=== PATIENT | male | born 1975 | race Caucasian/White ===

== ENCOUNTER 2018-02-03 09:09 | Outpatient (CLI) | payer OTHER ==
[~2018-02-03 09:09] MED LIST: GADOPENTETATE DIMEGLUMINE 5 ML VIAL IVP ONE; IOTHALAMATE MEGLUMINE 50 ML VIAL ONE
[2018-02-03] MEDS ORDERED: GADOPENTETATE DIMEGLUMINE 5 ML VIAL IVP ONE (10:31)
[2018-02-03] MEDS ORDERED: BUFFERED LIDOCAINE 10 ML SYRINGE IU ONE (10:31)
[2018-02-03] MEDS ORDERED: IOTHALAMATE MEGLUMINE 50 ML VIAL IVP ONE (10:31)
--- NOTE | 2018-02-03 13:53 | MRI Report ---
Reason: PAIN IN UNSPECIFIED SHOULDER Procedure Date: 02/03/2018 Accession Number: [id number] / [id number] Procedure: MRI - Arthrogram Shoulder RT CPT Code: FULL RESULT: EXAM: RIGHT SHOULDER MRI ARTHROGRAM WITH CONTRAST EXAM DATE: 02/03/2018 11:13 AM. CLINICAL HISTORY: Right shoulder pain. History of anterior shoulder dislocation. COMPARISON: None. TECHNIQUE: Multiplanar, multisequence T1-weighted and fluid-sensitive sequences of the shoulder after an arthrographic injection of dilute gadolinium, dictated under a separate exam. Other: None. FINDINGS: Acromioclavicular Region: The acromion is type II. The acromioclavicular joint is unremarkable. The coracoacromial and coracoclavicular ligaments are intact. There is no contrast or fluid in the subacromial/subdeltoid bursa. Glenohumeral Region: No subluxation. No loose bodies. The articular cartilage is unremarkable. The glenohumeral ligaments and joint capsule are unremarkable. Bone Marrow: There is a chronic Hill-Sachs impaction deformity of the posterior superior humeral head measuring 2.2 cm in coronal dimension and 3.1 cm in sagittal dimension on the axial image. There is also an impaction deformity of the anterior inferior glenoid with irregularity of the inferior glenoid rim, also chronic. The glenoid track measures 3 cm with 3 mm glenoid bone loss anteriorly. Labrum: There is a chronic-appearing bony Bankart tear of the anterior inferior labrum with displacement of the bony Bankart fragment anteriorly and inferiorly into the axillary pouch. The posterior labrum is intact. Biceps Tendon: The long head of the biceps tendon and biceps emma are intact. Musculature/Rotator Cuff: Intrasubstance tear of the supraspinatus tendon measuring 5 x 4 mm at the footprint. The subscapularis, infraspinatus, and teres minor tendons are intact. No edema or fatty atrophy. Other: The subcutaneous tissues are unremarkable. IMPRESSION: 1. Sequelae of chronic anterior shoulder dislocation, with the Hill-Sachs index greater than the glenoid track, suspicious for an off track lesion at risk of engagement. 2. Bony Bankart tear of the anterior inferior labrum is displaced from the glenoid and likely adherent to the joint capsule at the axillary pouch. 3. Small intrasubstance tear of the supraspinatus tendon at the footprint measuring 5 x 4 mm. Otherwise intact rotator cuff tendons. No surfacing rotator cuff tendon tear. [facility] MUSCULOSKELET[facility]IOLOGY SECTION
--- NOTE | 2018-02-03 16:08 | XRAY Report ---
Reason: PAIN IN UNSPECIFIED SHOULDER Procedure Date: 02/03/2018 Accession Number: [id number] / [id number] Procedure: FL - Arthrogram Needle Placement CPT Code: FULL RESULT: EXAM: RIGHT SHOULDER ARTHROGRAPHIC INJECTION WITH FLUOROSCOPIC GUIDANCE EXAM DATE: 02/03/2018 10:22 AM. CLINICAL HISTORY: Pain in unspecified shoulder. COMPARISON: None. TECHNIQUE: The risks, benefits, and alternatives of the procedure were discussed with the patient. All questions were answered. Written and verbal consent were obtained. The glenohumeral joint was marked under fluoroscopy and prepped and draped in a sterile manner. Local anesthesia was performed with 1% lidocaine. A 22-gauge needle was then inserted into the glenohumeral joint. 10 mL of a solution containing 25% 1% lidocaine, 25% iodinated contrast, and a 1:200 dilution of gadolinium contrast in sterile saline was then injected. The needle was removed without immediate complication. Other: None. Fluoroscopy Time: 0.1 minutes. Number of Images: 3. FINDINGS: Bones and joints: Hill-Sachs deformity is identified. No subluxation. Injection: Fluoroscopic images demonstrate needle placement and contrast in the glenohumeral joint. No contrast extravasation outside of the glenohumeral joint. IMPRESSION: Successful fluoroscopically guided arthrographic injection of the shoulder. [facility]
== END 2018-02-03 09:10 | disposition home or self-care (01) ==
LOC: DI 09:09
PROVIDERS: ATTEND Orthopaedic Surgery
DX: M21.821 Other specified acquired deformities of right upper arm (principal); S43.491A Other sprain of right shoulder joint, initial encounter; M75.101 Unspecified rotator cuff tear or rupture of right shoulder, not specified as traumatic
CPT/HCPCS: 23350; 73222; 77002; Q9961

== ENCOUNTER 2020-02-01 09:01 | Outpatient (CLI) | payer OTHER ==
[2020-02-01 09:52] VITALS: BP 124/84
--- NOTE | 2020-02-01 09:52 | SLEEP CARE CONSULTATION ---
Information from patient questionnaire entered by Regine Galindo. I have reviewed and concur with the information entered by Regine Galindo. This document represents the service I personally performed and the decisions made by me, Geeta Kendrick ARNP. History of Present Illness Service Date and Time: 02/01/2020 09 Reason for Visit: New patient Chief Complaint: reports: Insomnia, Unrefreshed sleep, Excessive daytime sleepiness, Frequent awakenings at night. denies: Snoring, Observed pauses in breathing, Fatigue Date of Onset: 10-15 years Usual bedtime: 9pm weekdays, 10pm weekends Time it takes to fall asleep: 5 min Snores at night: No Observed to quit breathing while asleep: No Sleeps alone due to snoring: No Number of times waking at night: 5-10 Reasons for waking at night: reports: Gasping for air (with sleep paralysis in a dream), Bathroom, Other (mostley just wake up hourly; some mind racing) Toss, Turn, or Twitch while sleeping: Yes Recalls having dreams: Yes Usually gets out of bed at: 4am tete on weekdays, 6am on weekends Feels refreshed in the morning: No Morning headache: No Sleepy or fatigued during the day: Yes Ever fallen asleep while driving: Yes Takes day naps: No Dreams during day naps: Yes (sometimes) Prior sleep studies: No Additional HPI information: I had the pleasure of seeing FRANCISCO AGUERO today regarding the possibility of him having a sleep disorder. His current complaints are insomnia, unrefreshed sleep and frequent night awakenings. He has a history of issues with not getting enough sleep. He states some days are better than others. 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 He states in the last couple of years it seems to be worsening because he is having dreams of having sleep paralysis with his dreaming. He wakes up gasping sometimes when having these sleep paralysis dreams. His parents and grandparents all are snorers but he does not know if any have been diagnosed with sleep apnea. - Parasomnia Symptoms Ever been unable to move upon waking from sleep: Yes (35 years) Walks in sleep: Yes (as a child) Talks in sleep: Yes (once in a while if exhausted) Ever acted out dreams in sleep: Yes (not often, 1-2 times) Ever felt weak in the knees when startled or emotional: No Bothered by creepy, crawly, restless sensations in legs: Yes (sometimes; couple times a month) Problems with memory or concentration: Yes Subjective Initial [place] Sleepiness Scale score: 18 (in 2019) Past Medical History Past Medical History: reports: Gout, Anxiety (a little bit 1-2 times a month), Attention deficit, Other (ADHD, Kidney issue-abnormal and increased protein in urine (proteinuria) since 20 yrs old). denies: Hypertension, Congestive Heart Failure, Diabetes, Coronary Heart Disease, Arrythmia, Hypothyroidism, Anemia, Impotence, Depression, Mood disorder, GERD Social History The patient's occupation is a AM. Patient is and lives in [place]. Have you smoked in the past 12 months: Yes Cigarettes per day (20/pack): 10 Years of smokin Smoking Pack Years: 4.5 Alcohol use: Yes Alcohol amount and frequency: 2-3 drinks daily Caffeine use: Yes Caffeine amount and frequency: 2-3 cups in the morning Family History Family history of sleep disordered breathing: Yes (mother, father, both maternal and paternal grandparents) Family Hx Sleep Apnea: Mother: Snoring, Father: Snoring, Grandparent: Snoring Allergies and Home Medications Drug allergies reviewed: Yes (codiene) Home medication list reviewed: Yes (no medications) Review of Systems Weight loss over past 5 years: 40 Cardiovascular: denies: high blood pressure, palpitations, chest pain, irregular heart rate or pulse Respiratory: denies: shortness of breath, chronic cough Gastrointestinal: denies: heartburn, difficulty swallowing Urinary: denies: impotence Neurological: denies: headaches, seizure, head trauma, speech dysfunction, gait or balance problems Psychiatric: reports: Attention Deficit Hyperactivity, anxiety, depression. denies: mood disorder Ear/Nose/Throat: reports: wisdom teeth removed. denies: nasal congestion, sinus problems, nose bleeds, dry mouth/throat, injury to nose, tonsillectomy Endocrine: reports: sluggishness Musculoskeletal: reports: joint pain, muscle pain or cramping, mobility problems Immunologic: reports: other (allergy to cats). denies: allergies to food or environment Physical Exam Blood Pressure: 124/84 Cuff size: long Heart Rate: 53 O2 Saturation: 99 Height: 6 ft Weight: 180 lb Body Mass Index: 24.4 BMI Classification: Healthy weight Neck circumference: 15 (inches) HEENT: No craniofacial malformation Nostrils: patent to airflow Turbinates: normal Septum: midline Mouth and throat: narrow oropharynx Hard palate: arched Uvula visualization: 50% Mallampati Class II Tongue: enlarged in size with teeth rojas on lateral edges Tonsils: 1+ Chin and jaw: normal size and position Neck: normal w/o lymphadenopathy or thyromegaly Heart: regular rate and rhythm Lungs: clear bilaterally Impression and Plan 1. Suspected Obstructive Sleep Apnea-Hypopnea Syndrome, as suggested by a history of frequent awakening during the night, unrefreshed sleep, cognitive impairment, and excessive daytime sleepiness. I reviewed with patient that a narrow oropharynx and obesity are common predisposing factors for obstructive sleep apnea-hypopnea syndrome. I recommend proceeding to polysomnography to confirm the diagnosis and to assess severity. If the patient has significant sleep disordered breathing, a manual CPAP titration study will also be performed to find the optimal treatment pressure. I informed the patient of what the sleep studies involve and after some discussion, obtained agreement to proceed. The pathophysiology of obstructive sleep apnea-hypopnea syndrome was discussed with the patient and health risks of cardiovascular and cerebrovascular disease if not treated. Risks of drowsy driving discussed in detail and patient advised to avoid long distance driving and to caul fat puller at the first sign of drowsiness. Patient agreed to plan. * Schedule polysomnography +- manual CPAP titration study. * Avoid long distance driving or driving when feeling sleepy. * Avoid alcohol, sedative and muscle relaxant around bedtime. * Review instructions provided by trained office staff on how to prepare for the sleep study. * Return for follow-up after sleep study completed. Visit Type: In Office Time Spent with Patient (minutes): 35 Provider Statement: I spent 100% of the Face to Face Visit with the patient with greater than 50% spent counseling the patient and coordination of care.
== END 2020-02-01 09:02 | disposition home or self-care (01) ==
LOC: SC 09:01
PROVIDERS: ATTEND Nurse Practitioner Family
DX: G47.8 Other sleep disorders (principal); R41.89 Other symptoms and signs involving cognitive functions and awareness; G47.10 Hypersomnia, unspecified; F17.210 Nicotine dependence, cigarettes, uncomplicated
CPT/HCPCS: 99203; 99212

== ENCOUNTER 2020-02-07 20:35 | Outpatient (CLI) | payer OTHER | END 2020-02-07 20:36 | disposition home or self-care (01) | LOC: SC 20:35 | PROVIDERS: ATTEND Nurse Practitioner Family | DX: R00.1 Bradycardia, unspecified (principal); G47.10 Hypersomnia, unspecified; G47.8 Other sleep disorders | CPT/HCPCS: 95810 ==

== ENCOUNTER 2020-02-22 10:02 | Outpatient (CLI) | payer OTHER ==
--- NOTE | 2020-02-22 11:03 | SLEEP CARE CONSULTATION ---
Information from patient questionnaire entered by Regine Galindo. I have reviewed and concur with the information entered by Regine Galindo. This document represents the service I personally performed and the decisions made by me, Aicha Abbott MD, [facility]. History of Present Illness Service Date and Time: 02/22/2020 1002 Initial [place] Sleepiness Scale score: 18 (in 2019) Current [place] Sleepiness Scale score: 13 Additional HPI information: HPI: Mr. Cleaning returned for a follow up of the sleep study he had on 02/07/2020. The polysomnography showed that the patient had normal sleep efficiency. The sleep architecture was normal as well. Respiratory monitoring showed no significant sleep disordered breathing (AHI = 0.1) or hypoxia (magen oxygen saturation of 94%). The patient slept adequately in supine position (supine AHI = 0.0; non-supine = 0.24). Snore was infrequent and light in intensity. There was no significant periodic leg movement of sleep. Cardiac rhythm was normal sinus rhythm with mild sinus bradycardia (lowest heart rate of 36 beats per minute).. No abnormal behavior (parasomnia) observed during the night. The patient was informed of these findings. I explained to him that the sleep study was normal. He said that is what he anticipated as well. He complains of waking up 2 -3 times a night and attributes it to anxiety. He goes to bed at 9 pm and gets out of bed at 4:30 am every day, weekends included. He does not nap during the day. Sleep Study - Results Type of Sleep Study: Polysomnography Prior sleep studies: No Allergies and Home Medications Drug allergies reviewed: Yes Home medication list reviewed: Yes Review of Systems Review of systems same as previous: Yes Physical Exam Height: 6 ft Weight: 180 lb Body Mass Index: 24.4 BMI Classification: Healthy weight Impression and Plan IMPRESSION: 1. Insomnia, involving sleep maintenance. No sleep disrupting conditions found during the sleep study. He did not have insomnia during the sleep study either. His sleep-wake schedule is good and does not require adjustment. He may benefit from removing the alarm from sight at night. He plans to address the anxiety issue with a psychiatrist. PLAN: 1. Follow up with his primary care provider. 2. Return to the sleep clinic on as needed basis. Visit Type: In Office Time Spent with Patient (minutes): 15 Provider Statement: I spent 100% of the Face to Face Visit with the patient with greater than 50% spent counseling the patient and coordination of care.
== END 2020-02-22 10:03 | disposition home or self-care (01) ==
LOC: SC 10:02
PROVIDERS: ATTEND Internal Medicine Pulmonary Disease
DX: G47.00 Insomnia, unspecified (principal)
CPT/HCPCS: 99212; 99213

== ENCOUNTER 2020-04-14 07:06 | Emergency (ER) | payer OTHER ==
--- NOTE | 2020-04-14 07:35 | ED Physician Documentation ---
PD HPI UPPER EXT INJURY - Stated complaint Stated Complaint: RT SHOULDER PX - Chief complaint Chief Complaint: Ext Problem - History obtained from History obtained from: Patient - Additonal information Additional information: Patient comes emergency department chief complaint of shoulder dislocation. 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 He states that he was just reaching over to grab his gloves on the front seat of his car when he felt his shoulder pop out this morning. Patient states it is his right side and he has right side dominant. He denies any numbness or tingling. No pain distally though he has a little pain in the shoulder. He states he has been well lately and is otherwise healthy. He is planning to see an orthopedist again through the [facility] to have his shoulder surgically repaired. No other complaints at this time. Review of Systems Ten Systems: 10 systems reviewed and negative Constitutional: reports: Reviewed and negative Eyes: reports: Reviewed and negative Ears: reports: Reviewed and negative Nose: reports: Reviewed and negative Throat: reports: Reviewed and negative Cardiac: reports: Reviewed and negative Respiratory: reports: Reviewed and negative GI: reports: Reviewed and negative : reports: Reviewed and negative Skin: reports: Reviewed and negative Musculoskeletal: reports: Joint pain (Right shoulder dislocation.) Neurologic: reports: Reviewed and negative Psychiatric: reports: Reviewed and negative Endocrine: reports: Reviewed and negative Immunocompromised: reports: Reviewed and negative PD PAST MEDICAL HISTORY - Present Medications Home Medications: Ambulatory Orders Medication Instructions Recorded Confirmed HYDROcod/ACETAM 5/325 [[place] 5/325] 1 - 2 ea PO Q6H PRN #6 tablet 04/14/20 PD ED PE NORMAL - Vitals Vital signs reviewed: Yes - General General: Alert and oriented X 3, No acute distress - HEENT HEENT: Atraumatic, PERRL, EOMI, Moist mucous membranes - Neck Neck: Supple, no meningeal sign - Cardiac Cardiac: RRR, No murmur, Strong equal pulses - Respiratory Respiratory: No respiratory distress, Clear bilaterally - Back Back: No spinal TTP - Derm Derm: Normal color, Warm and dry, No rash - Extremities Extremities: No edema, Other (Limited range of motion right shoulder with palpable emptiness of glenohumeral joint. No deformity of the humerus is grossly noted. Minimal tenderness to palpation.) - Neuro Neuro: Alert and oriented X 3, licensing manager 2-12 intact, No motor deficit, No sensory deficit, Normal speech - Psych Psych: Normal mood, Normal affect Results - Vitals Vitals: Vital Signs - 24 hr 04/14/20 04/14/20 04/14/20 07:27 08:18 08:22 Temperature 36.5 C Heart Rate 57 L 58 L 71 Respiratory 16 16 18 Rate Blood Pressure 147/85 H 141/90 H 139/78 H O2 Saturation 100 99 100 04/14/20 04/14/20 04/14/20 08:24 08:28 08:30 Temperature Heart Rate 70 63 66 Respiratory 14 16 16 Rate Blood Pressure 124/82 H 131/83 H 133/85 H O2 Saturation 95 100 100 04/14/20 04/14/20 08:32 09:06 Temperature Heart Rate 66 65 Respiratory 14 18 Rate Blood Pressure 136/79 H O2 Saturation 99 Oxygen O2 Source Room air - Rads (name of study) R shoulder XR Radiology: Final report received, EMP read indepedently, See rad report (anterior dislocation, possible Bankhart lesion) R shoulder XR post-redux Radiology: Final report received, EMP read indepedently, See rad report (interval reduction of dislocation; persistence of appearance of possible Bankhart lesion) Procedures - Reduction Body part reduced: Right, Shoulder Fracture or dislocation: Dislocation Anesthesia: Propofol Shoulder reduction technique: [place] / ext rotation, Traction - counter tract Reduction aftercare: NV intact, Xray confirms reduction, Alignment improved, Sling, Patient tolerated well - Procedural sedation Sedation prep: Informed consent, Time out completed, ASA 1 - healthy, IV O2 monitor, ET CO2 monitor, RT present Sedation medications: propofol, given by RN Patient status during sedation: Unresponsive, Vitals remained stable, Maintained airway, Recovered uneventfully Sedation recovery: Recovered uneventfully, Back to baseline Time in sedation (Minutes): 10 PD MEDICAL DECISION MAKING - ED course Complexity details: reviewed old records, reviewed results, re-evaluated patient, considered differential, d/w patient, d/w family ED course: Initial right shoulder x-ray series revealed an anterior dislocation without acute fracture (pt is known to have chronic Bankhart). Reduction was performed as above under procedural sedation, and was tolerated well by the patient. Repeat x-rays demonstrated reduction. PT was placed in a sling. Patient awakened and returned to baseline and was able to be discharged with a sober ride. We have discussed management of the symptoms at home, as well as the need for orthopedic follow-up, with which patient is already established. Departure - Departure Disposition: 01 Home, Self Care Clinical Impression: Shoulder dislocation Qualifiers: Encounter type: initial encounter Laterality: right Qualified Code(s): S43.004A - Unspecified dislocation of right shoulder joint, initial encounter Condition: Stable Instructions: Sedation Procedural, ED Dislocation Shoulder Redu Prescriptions: HYDROcod/ACETAM 5/325 [[place] 5/325] 1 - 2 ea PO Q6H PRN #6 tablet PRN Reason: Pain Comments: Your x-ray series today demonstrated a dislocation of your shoulder, which was put back in place under sedation. This went very well and the x-ray looks good now. It is important that you do not drive for the next 24 hours. You should also not operate machinery or power tools, and you should not make any major decisions in the next 24 hours. Please follow-up with orthopedics as you have planned to do for further care of your shoulder. It is recommended that you wear the sling for the next few days to allow your shoulder to recover. Please avoid the movements and maneuvers with which you are familiar that can trigger another dislocation. You may take the pain medication provided, as well as ibuprofen, to help with any discomfort you may have. Discharge Date/Time: 04/14/20 09:06
[2020-04-14] MEDS ORDERED: PROPOFOL 200 MG/20 ML VIAL IVP STA (08:10)
[2020-04-14] MEDS ORDERED: SODIUM CHLORIDE 0.9% 1,000 ML IV STA (08:10)
[2020-04-14] MEDS ORDERED: PROPOFOL 200 MG/20 ML VIAL IVP ONE (08:20)
--- NOTE | 2020-04-14 08:27 | XRAY Report ---
PROCEDURE: Shoulder 2 View RT INDICATIONS: injury/dislocation TECHNIQUE: 2 views of the shoulder were acquired. COMPARISON: None. FINDINGS: Bones: There is anterior inferior dislocation of the glenohumeral joint. Irregularity involving infer ior glenoid is seen, concerning for a Bankart fracture. No other fracture or dislocation is seen. No suspicious bony lesions. Visualized ribs appear intact. Soft tissues: No suspicious soft tissue calcifications. IMPRESSION: Anterior inferior dislocation of the glenohumeral joint with suggestion of inferior mervat oid fracture. Reviewed by: Saul Davis MD on 04/14/2020 8:25 AM [facility] Approved by: Saul Davis MD on 04/14/2020 8:25 AM [facility] Station ID: [id number]
--- NOTE | 2020-04-14 08:50 | XRAY Report ---
PROCEDURE: Shoulder 2 View RT INDICATIONS: post reduction TECHNIQUE: 2 views of the shoulder were acquired. COMPARISON: X-ray shoulder 04/14/2020 FINDINGS: Bones: There is been interval reduction of previous anterior dislocation. No suspicious bony lesions . Visualized ribs appear intact. There is a slight appearance of irregularity at the inferior gleno id although not as well seen on current exam. Soft tissues: No suspicious soft tissue calcifications. IMPRESSION: 1. Interval reduction with good anatomic alignment. 2. Previously noted irregularity at the inferior glenoid is slightly visible although not well charac terized. As previously noted, Bankart lesion cannot be definitively excluded. If this remains of conc wilver, further evaluation with CT or MR is recommended. Reviewed by: Gabriela Ford MD on 04/14/2020 8:49 AM [facility] Approved by: Gabriela Ford MD on 04/14/2020 8:49 AM [facility] Station ID: [id number]
[2020-04-14 09:06] VITALS: BP 136/79
== END 2020-04-14 09:06 | disposition home or self-care (01) ==
LOC: ED 07:06
DX: S43.004A Unspecified dislocation of right shoulder joint, initial encounter (principal); X58.XXXA Exposure to other specified factors, initial encounter
CPT/HCPCS: 94770; 99152; 99283; 99285

== ENCOUNTER 2023-01-03 15:43 | Outpatient (CLI) | payer OTHER ==
--- NOTE | 2023-01-04 14:48 | MRI Report ---
PROCEDURE: FOOT WO - RT INDICATIONS: RIGHT FOOT PAIN TECHNIQUE: Noncontrast sagittal T1 spin echo and T2 fast spin echo with fat saturation, long-axis T1 spin echo a nd T2 fast spin echo with fat saturation, short-axis proton density fast spin echo and T2 fast spin e cho with fat saturation through the forefoot. COMPARISON: None. FINDINGS: Image quality: Excellent. Bones and joints: There is moderate to severe hallux valgus. Second toe hammertoe deformity is also n oted First MTP joint osteoarthritic changes are seen with joint space narrowing, subchondral sclerosi s and marginal osteophyte formation. Osteoarthritic changes also noted involving articulation between first metatarsal head and sesamoids. Marrow edema within medial sesamoid of first metatarsal head is seen without discrete fracture line. No acute fracture or dislocation. No metatarsal stress fracture s. No suspicious bony lesion. Soft tissues: The visualized plantar foot muscles demonstrate normal signal and bulk. Visualized fl exor and extensor tendons appear intact, without tenosynovitis. There attenuated appearance involving medial collateral ligament of first MTP joint is seen suggestive of moderate grade partial-thickness tear. There is also suggestion of ruptured lateral sagittal band of first MTP joint with and lateral subluxation of the extensor tendon. Sagittal images demonstrate moderate grade partial-thickness tea r involving plantar plate of second MCP joint at its distal insertion. IMPRESSION: 1. Moderate to severe hallux valgus with moderate first MTP joint osteoarthritis. Hammertoe deformity involving second toe. Osteoarthritis involving articulation between first metatarsal head and sesamo ids with suggestion of medial sesamoiditis. No acute fracture or dislocation. No suspicious bony lesi ons. No metatarsal stress fractures. 2. Suggestion of moderate grade partial-thickness tear involving medial collateral ligament of first MTP joint. Suggestion of ruptured lateral sagittal band of first MTP extensor linares with lateral sublu xation of the extensor tendon at this level. 3. Suggestion of moderate grade partial-thickness tear involving plantar plate of second MTP joint ne ar its distal insertion. Reviewed by: Saul Davis MD on 01/04/2023 2:47 PM PDT Approved by: Saul Davis MD on 01/04/2023 2:47 PM PDT Station ID: [id number]
== END 2023-01-03 15:44 | disposition home or self-care (01) ==
LOC: DI 15:43
PROVIDERS: ATTEND General Practice
DX: M20.11 Hallux valgus (acquired), right foot (principal); M19.071 Primary osteoarthritis, right ankle and foot; M20.41 Other hammer toe(s) (acquired), right foot